=== PATIENT | male | born 1955 | race African-American/Black ===

== ENCOUNTER 2021-02-13 16:57 | Emergency (ER) | payer OTHER | END 2021-02-13 17:54 | disposition home or self-care (01) | LOC: MADERS 16:57 | DX: M1A.9XX1 Chronic gout, unspecified, with tophus (tophi) (principal) | CPT/HCPCS: 99283 ==

== ENCOUNTER 2023-05-18 15:25 | Outpatient (CLI) | payer MEDICARE | END 2023-05-18 15:26 | disposition home or self-care (01) | LOC: MADRAD 15:25 | PROVIDERS: ATTEND Internal Medicine | DX: M25.542 Pain in joints of left hand (principal); M10.9 Gout, unspecified | CPT/HCPCS: 36415; 84550 ==